=== PATIENT | male | born 1930 | race Caucasian/White ===

== ENCOUNTER 2016-08-29 16:17 | Inpatient (IN) | payer BC ==
--- NOTE | ~2016-08-29 | DS ---
Discharge Summary [facility] [address] [place]. [address] NAME: BUDDY TRAN : [birth year] STATUS : DIS IN PAT#: [id number] AGE: 86 ADM/REG DATE : 08/29/16 MR#: [id number] REPORT SERV DATE: 09/11/16 DICTATED BY: JEFF MAN DATE: 09/10/16 REPORT STATUS : Draft TRANSCRIBED BY: MODPavel DATE: 09/10/16 Data Collection from hospitalization DISCHARGE DIAGNOSES: 1. 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 2. Atrial fibrillation. 3. Hypertension. 4. Diabetes. 5. Hyperlipidemia. 6. Aortic stenosis. 7. History of coronary artery disease. CONSULTATIONS: Juan M Jackson M.D. PROCEDURES PERFORMED: None. MEDICATIONS: Norvasc 5 mg daily, Eliquis 5 mg twice a day, aspirin 81 mg daily, Folbic one tablet daily, ferrous sulfate 325 mg daily, Proscar 5 mg daily, Lasix 40 mg daily, Amaryl 1 mg daily, Prilosec 20 mg daily, Klor-Con 20 mEq daily, Altace 2.5 mg daily, and Zocor 20 mg at bedtime. He was instructed not to continue sotalol. CONDITION AT DISCHARGE: Stable. DISPOSITION: The patient was discharged home on an 1800-calorie cardiac/diabetic diet with activities as instructed. He would follow up with Dr. Juan M Jackson three weeks following discharge and four weeks following discharge. He would follow up with me two weeks following discharge. HOSPITAL COURSE: This is an 86-year-old man who had atrial fibrillation, that had fairly recently been diagnosed. His daughter stated that he had been on Brilinta and metoprolol, but about a month prior to this admission, he was switched to sotalol and Eliquis. Unfortunately, the patient did not stop the metoprolol, so he was on two beta-blockers at one time. He began to feel very poor. He presented to my office and was found to have heart rates in the 20s, this appeared to be sinus rhythm. He was brought to [facility] and admitted at this time for further evaluation and treatment. Upon admission, he had been in on distress. The following day, his blood pressure had increased into the 180s systolic. His heart rate was stable. He was in atrial fibrillation, slow ventricular response. He was hemodynamically stable. He was transferred to the floor. Norvasc was being given for hypertension. MONTSERRAT inhibitor was going to be resumed. On 08/31/2016, he was seen by Dr. Juan M Jackson regarding bradycardia. He is normally very active, but recently he has felt poorly. He has had no bleeding problems. His white blood cell count was 13. Liver function tests were normal. Cardiac enzymes were negative. Creatinine level was 1. His electrocardiogram initially demonstrated sinus bradycardia with heart rate around 40. Telemetry revealed that he was presently in atrial fibrillation with a controlled rate in the 80s or 90s. He occasionally gets up to about 100s. He was felt to have severe sinus bradycardia, probably secondary to medical noncompliance. Metoprolol and sotalol were stopped. He had converted from sinus Discharge Summary [address] [place]. [address] NAME: BUDDY TRAN : [birth year] STATUS : DIS IN PAT#: [id number] AGE: 86 ADM/REG DATE : 08/29/16 MR#: [id number] REPORT SERV DATE: 09/11/16 DICTATED BY: JEFF MAN DATE: 09/10/16 REPORT STATUS : Draft TRANSCRIBED BY: SWETA DATE: 09/10/16 bradycardia to atrial fibrillation with heart rate mostly in the 80s or 90s, sometimes a little above 100. This was while he was sitting in bed. Our options were discussed with the patient and his daughter. The first option was to leave him in atrial fibrillation with minimal or no rate control. He would continue Eliquis as long as he feels well and there is no bradycardia, no other change would need to be made. The next option would be to place a pacemaker and try to maintain sinus rhythm with sotalol or some other antiarrhythmic medication. For now, we agreed to observe him on no rate controlling medications. We would add one of them possibly very slowly if we have to. If at any time he converted to sinus rhythm on his own and was bradycardic off medications, he would definitely need a pacemaker before he goes home. It was felt that he could go out to a telemetry bed, but he would have to stay at least one night if not two to be observed on telemetry. Later that day, the patient said he felt good. He had no new complaints. His lungs were clear. Discharge instructions were given. Due to his improved and stable condition, he was discharged home with the above-stated instructions. Information collected by: Libra Trujillo I submit the above information as my discharge summary. JAIME/SWETA Jeff Man M.D., F.A.CTimothyCTimothy / [id number] CC: Jeff Man M.D., KimCSteffany Calero F.A.C.P., M.D.
--- NOTE | ~2016-08-29 | CN ---
Consultation Report [facility] [address] [place]. [address] NAME: BUDDY DILLARD : [birth year] STATUS : ADM IN PAT#: [id number] AGE: 86 ADM/REG DATE : 08/29/16 MR#: [id number] REPORT SERV DATE: 08/31/16 DICTATED BY: JUAN M JACKSON DATE: 08/31/16 REPORT STATUS : Draft TRANSCRIBED BY: MODL DATE: 08/31/16 CONSULTATION DATE OF CONSULTATION: 08/31/2016 REASON FOR THE VISIT: Bradycardia. HISTORY OF PRESENT ILLNESS: Mr. Dillard is an 86-year-old man with atrial fibrillation, that has been fairly recently diagnosed. The patient is not the best historian, but his daughter is in the room and is an excellent historian. He was on Brilinta and metoprolol, but about a month ago, he was switched to sotalol and Eliquis. Unfortunately, the patient did not stop the metoprolol, so he was on two beta blockers at one time. He has been feeling very poorly. He presented to Dr. Man's office and was found to have a heart rate in the 20s. This appears to be sinus rhythm. He was brought to [facility]. He has since converted to atrial fibrillation with a heart rate in the 70s and 80s. He feels much better. His daughter states that he has had a fairly acute decline over the last weeks to month or two in his functional status. Normally, he is very active, but recently he feels poorly. No bleeding problems. PAST MEDICAL HISTORY: 1. Aortic stenosis. 2. Atrial fibrillation. 3. History of coronary artery disease. 4. Hypertension. 5. Diabetes. 6. Hyperlipidemia. SOCIAL HISTORY: He remains very active. He lives with his daughter, who is very involved in his care. He does not smoke. FAMILY HISTORY: Noncontributory. HOME MEDICATIONS: 1. Eliquis 2.5 mg b.i.d. 2. Aspirin 81 mg daily. 3. Iron. 4. Proscar 5 mg daily. 5. Amaryl 1 mg daily. 6. Prilosec 20 mg daily. 7. Altace 2.5 mg daily. 8. Zocor 20 mg every night at bedtime. 9. Sotalol 80 mg b.i.d. 10.Metoprolol, unknown dose b.i.d. Consultation Report [facility] [address] [place]. [address] NAME: BUDDY DILLARD : [birth year] STATUS : ADM IN PAT#: [id number] AGE: 86 ADM/REG DATE : 08/29/16 MR#: [id number] REPORT SERV DATE: 08/31/16 DICTATED BY: JUAN M JACKSON DATE: 08/31/16 REPORT STATUS : Draft TRANSCRIBED BY: SWETA DATE: 08/31/16 ALLERGIES: HE IS ALLERGIC TO PENICILLIN. REVIEW OF SYSTEMS: A 10 system review is asked and is basically negative except for noted above in the history of present illness. It is remarkable for worsening dyspnea on exertion and fatigue. No chest pain or passing out. PHYSICAL EXAMINATION: VITAL SIGNS: Temperature 98.0, heart rate 80, blood pressure 134/73. GENERAL: Mr. Dillard is a well-developed man in no acute distress. He is alert and oriented to person and place. HEENT: Negative. He is not dehydrated. NECK: Does not show significant JVD. LUNGS: Have some rhonchi. No wheezing. HEART: Tones are irregular. There is a murmur. ABDOMEN: The abdominal exam is negative. He has good bowel sounds. EXTREMITIES: Minimal chronic pitting edema. NEUROLOGIC: He has normal speech and moves all four extremities equally. SKIN: Shows bruising. No rash. LABORATORY DATA: White blood cell count 13, hematocrit 45, platelet count 151. Sodium 143, potassium 3.9, BUN 16, creatinine is 1. Cardiac enzymes are negative. Liver function tests are normal. Electrocardiogram has initially demonstrated sinus bradycardia with heart rate around 40. Telemetry, presently he is in atrial fibrillation with a controlled rate in the 80s or 90s. He occasionally gets up to about 100. Echocardiogram, this is performed recently as an outpatient and demonstrates an ejection fraction between 45% and 50% and is consistent with severe aortic stenosis. IMPRESSION: Severe sinus bradycardia, probably secondary to medical noncompliance. PLAN: Mr. Dillard's metoprolol and sotalol have been stopped. He has converted from sinus bradycardia to atrial fibrillation with a heart rate mostly in the 80s or 90s, sometimes a little above 100, this is while he is sitting in bed. I talked to him and his daughter in detail today about our options. The first option is to leave him in atrial fibrillation with minimal or no rate control. He would continue Eliquis. As long as he feels well and there is no bradycardia, no other change needs to be made. The next option is to put in a pacemaker and try to maintain sinus rhythm with sotalol or some other antiarrhythmic medication. For now, we agree to observe him on no rate controlling medications. We would add one of them possibly very slowly if we had to. If at any time, he converts to sinus rhythm on his own and is bradycardic, (off medicines), then he will definitely need a pacemaker before he goes home. I think, he can go out to a telemetry bed, but he has to stay at least one night if not to, to observe him on telemetry. Consultation Report [facility] [id number] [place]. [address] NAME: BUDDY DILLARD : [birth year] STATUS : ADM IN [facility]#: [id number] AGE: 86 ADM/REG DATE : 08/29/16 MR#: [id number] REPORT SERV DATE: 08/31/16 DICTATED BY: JUAN M JACKSON DATE: 08/31/16 REPORT STATUS : Draft TRANSCRIBED BY: SWETA DATE: 08/31/16 ENMA/SWETA Juan M Jackson M.D. / [id number] CC: Gerardo Proctor
[2016-08-29 15:26] LABS: BASOPHILS 0.2 %; BASOPHILS ABSOLUTE 0.02 10/3/uL (0.0-0.16); EOSINOPHILS 2.6 %; EOSINOPHILS ABSOLUTE 0.26 10/3/uL (0.0-0.53); HEMOGLOBIN 14.4 g/dL (13.6-17.8); IMMATURE GRANULOCYTES 0.2 %; IMMATURE GRANULOCYTES ABSOLUTE 0.02 10/3/uL (0.0-0.11); LYMPHOCYTES 40.9 %; LYMPHOCYTES ABSOLUTE 4.11 10/3/uL (0.67-4.30); MEAN PLATELET VOLUME 11.2 fL (9.2-13.0); MONOCYTES 8.4 %; MONOCYTES ABSOLUTE 0.84 10/3/uL (0.21-1.20); NEUTROPHILS 47.7 %; PLATELET COUNT 161 10/3/uL (150-400); RBC DISTRIBUTION WIDTH 16.5 % (12.0-16.0); WHITE BLOOD CELLS 10.1 10/3/uL (4.5-10.5)
[2016-08-29 15:29] LABS: HEMATOCRIT 39.9 % (40.0-51.0); MEAN CORPUS HGB CONC 36.1 g/dL (32.0-36.0); MEAN CORPUSCULAR HEMOGLOB 34.5 pg (26.0-34.0); MEAN CORPUSCULAR VOLUME 95.7 fL (80-100); RED CELL COUNT 4.17 10/6/uL (4.7-6.1)
[2016-08-29 15:30] LABS: MANUAL DIFF NO %
[2016-08-29 15:34] LABS: INTERNATIONAL NORMAL RATI 1.4 UNITS (-)
[2016-08-29 15:35] LABS: PARTIAL THROMBO TIME 35.3 SEC (22.5-37.2)
[2016-08-29 15:48] LABS: BUN (BLOOD UREA NITROGEN) 24 MG/DL (6-23); CALCIUM, SERUM 9.5 MG/DL (8.5-10.4); CHEST PAIN PROFILE TAT 0 Hrs 26 Mins; CHLORIDE, SERUM 109 MMOL/L (96-112); CO2 (CARBON DIOXIDE) 30 MMOL/L (24-34); CREATININE 1.43 MG/DL (0.70-1.30); GFR AFRICAN AMERICAN 50 ML/MIN (>=60); GFR NON AFRICAN AMERICAN 43 ML/MIN (>=60); POTASSIUM, SERUM 4.5 MMOL/L (3.5-5.3); SODIUM, SERUM 146 MMOL/L (135-148); TROPONIN I <0.02 NG/ML (<0.05)
[2016-08-29 15:49] LABS: GLUCOSE, SERUM 93 MG/DL (60-99)
[2016-08-29 16:10] LABS: EOSINOPHILS 5 %; EOSINOPHILS ABSOLUTE (CALC) 0.51 10/3/uL (0.0-0.53); ER DIFF TAT 0 Hrs 48 Mins; LYMPHOCYTES 45 %; LYMPHOCYTES ABSOLUTE (CALC) 4.55 10/3/uL (0.67-4.30); MONOCYTES 1 %; NEUTROPHILS ABSOLUTE (CALC) 4.95 10/3/uL (2.02-8.40); SEGMENTED NEUTROPHIL (0) 49 %; TOTAL NUCLEATED CELLS 100
[~2016-08-29 16:17] MED LIST: AMARYL1 MG PO; ASAB PO; BRILINTA90 MG PO; CYANO1000T PO; FOLBIC PO; IRON PO; IRON325 MG PO; LOP25 PO; PLAVIX PO; PRILO PO; PROSCAR5 PO; VITAMIN B-625 MG PO; ZOCOR40 PO; [UNRECOGNIZED DRUG - OTHER]; [UNRECOGNIZED DRUG - OTHER]
[2016-08-29 16:25] LABS: PLATELET ESTIMATE ADQ (ADEQUATE)
[2016-08-29 16:27] LABS: RBC MORPHOLOGY NORM (NORMAL)
[2016-08-29] MEDS ORDERED: FOLBIC PO (17:10)
[2016-08-29] MEDS ORDERED: AMARYL1 MG PO (17:10)
[2016-08-29] MEDS ORDERED: HALF81 PO (17:10)
[2016-08-29] MEDS ORDERED: FERROUS SULF325 M1 PO (17:10)
[2016-08-29] MEDS ORDERED: PROSCAR5 PO (17:11)
[2016-08-29] MEDS ORDERED: ELIQUIS 5 MG TAB5 MG PO (17:11)
[2016-08-29] MEDS ORDERED: PRILO PO (17:11)
[2016-08-29] MEDS ORDERED: ZOCOR20 PO (17:11)
[2016-08-29] MEDS ORDERED: ALTA2.5 PO (17:11)
[2016-08-29] MEDS ORDERED: BETAPACE80 PO (17:12)
[2016-08-30 04:29] LABS: HEMATOCRIT 40.4 % (40.0-51.0); HEMOGLOBIN 13.3 g/dL (13.6-17.8); MEAN PLATELET VOLUME 11.2 fL (9.2-13.0); PLATELET COUNT 148 10/3/uL (150-400); RBC DISTRIBUTION WIDTH 14.4 % (12.0-16.0); RED CELL COUNT 4.46 10/6/uL (4.7-6.1); WHITE BLOOD CELLS 9.9 10/3/uL (4.5-10.5)
[2016-08-30 04:30] LABS: MANUAL DIFF YES %; MEAN CORPUS HGB CONC 32.9 g/dL (32.0-36.0); MEAN CORPUSCULAR HEMOGLOB 29.8 pg (26.0-34.0); MEAN CORPUSCULAR VOLUME 90.6 fL (80-100)
[2016-08-30 04:48] LABS: A/G RATIO 1.4 (0.7-1.9); ALBUMIN 3.7 G/DL (3.5-5.0); ALKALINE PHOSPHATASE 115 U/L (45-117); BUN (BLOOD UREA NITROGEN) 22 MG/DL (6-23); CALCIUM, SERUM 9.3 MG/DL (8.5-10.4); CHLORIDE, SERUM 108 MMOL/L (96-112); CO2 (CARBON DIOXIDE) 28 MMOL/L (24-34); CPK 29 U/L (0-200); CREATININE 1.11 MG/DL (0.70-1.30); GFR AFRICAN AMERICAN 68 ML/MIN (>=60); GFR NON AFRICAN AMERICAN 59 ML/MIN (>=60); GLOBULIN 2.6 G/DL (2.5-4.1); GLUCOSE, SERUM 100 MG/DL (60-99); PHOSPHORUS, SERUM 3.2 MG/DL (2.5-4.5); POTASSIUM, SERUM 4.1 MMOL/L (3.5-5.3); SGOT(AST) 24 U/L (5-40); SGPT(ALT) 35 U/L (5-65); SODIUM, SERUM 146 MMOL/L (135-148); TOTAL BILIRUBIN 0.8 MG/DL (0-1.2); TOTAL PROTEIN 6.3 G/DL (6.0-8.5); TROPONIN I <0.02 NG/ML (<0.05)
[2016-08-30 04:50] LABS: CK-MB 1.5 NG/ML
[2016-08-30 05:19] LABS: BAND NEUTROPHILS 1 %; BASOPHILS 1 %; EOSINOPHILS 2 %; LYMPHOCYTES 31 %; LYMPHOCYTES ABSOLUTE (CALC) 3.07 10/3/uL (0.67-4.30); MONOCYTES 9 %; MONOCYTES ABSOLUTE (CALC) 0.89 10/3/uL (0.21-1.20); NEUTROPHILS ABSOLUTE (CALC) 5.64 10/3/uL (2.02-8.40); PLATELET ESTIMATE ADQ (ADEQUATE); RBC MORPHOLOGY NORM (NORMAL); SEGMENTED NEUTROPHIL (0) 56 %; TOTAL NUCLEATED CELLS 100
[2016-08-31 01:57] LABS: HEMOGLOBIN 15.6 g/dL (13.6-17.8); MEAN CORPUS HGB CONC 34.3 g/dL (32.0-36.0); MEAN CORPUSCULAR HEMOGLOB 30.2 pg (26.0-34.0); MEAN CORPUSCULAR VOLUME 88.2 fL (80-100); MEAN PLATELET VOLUME 10.9 fL (9.2-13.0); PLATELET COUNT 151 10/3/uL (150-400); RED CELL COUNT 5.16 10/6/uL (4.7-6.1); WHITE BLOOD CELLS 12.7 10/3/uL (4.5-10.5)
[2016-08-31 01:59] LABS: HEMATOCRIT 45.5 % (40.0-51.0); MANUAL DIFF YES %
[2016-08-31 02:15] LABS: A/G RATIO 1.2 (0.7-1.9); ALBUMIN 3.8 G/DL (3.5-5.0); ALKALINE PHOSPHATASE 142 U/L (45-117); BUN (BLOOD UREA NITROGEN) 16 MG/DL (6-23); CALCIUM, SERUM 9.2 MG/DL (8.5-10.4); CHLORIDE, SERUM 103 MMOL/L (96-112); CK-MB 1.9 NG/ML; CO2 (CARBON DIOXIDE) 29 MMOL/L (24-34); CPK 30 U/L (0-200); CREATININE 0.99 MG/DL (0.70-1.30); GFR AFRICAN AMERICAN 78 ML/MIN (>=60); GFR NON AFRICAN AMERICAN 68 ML/MIN (>=60); GLOBULIN 3.1 G/DL (2.5-4.1); GLUCOSE, SERUM 110 MG/DL (60-99); POTASSIUM, SERUM 3.9 MMOL/L (3.5-5.3); SGOT(AST) 22 U/L (5-40); SGPT(ALT) 32 U/L (5-65); SODIUM, SERUM 143 MMOL/L (135-148); TOTAL BILIRUBIN 1.4 MG/DL (0-1.2); TOTAL PROTEIN 6.9 G/DL (6.0-8.5); TROPONIN I 0.02 NG/ML (<0.05)
[2016-08-31 02:20] LABS: ATYPICAL LYMPH MOD (6-10%) (0-5%); EOSINOPHILS 2 %; EOSINOPHILS ABSOLUTE (CALC) 0.25 10/3/uL (0.0-0.53); LYMPHOCYTES 41 %; LYMPHOCYTES ABSOLUTE (CALC) 5.21 10/3/uL (0.67-4.30); MONOCYTES 5 %; MONOCYTES ABSOLUTE (CALC) 0.64 10/3/uL (0.21-1.20); SEGMENTED NEUTROPHIL (0) 52 %; TOTAL NUCLEATED CELLS 100
[2016-08-31 02:21] LABS: RBC MORPHOLOGY NORM (NORMAL)
[2016-09-01 05:18] LABS: CPK 36 U/L (0-200); TROPONIN I <0.02 NG/ML (<0.05)
[2016-09-01] MEDS ORDERED: NORV5 PO (11:05)
[2016-09-01] MEDS ORDERED: L40 PO (11:07)
[2016-09-01] MEDS ORDERED: KLOR-CON M2020 MEQ PO (11:09)
[2016-09-01] MEDS ORDERED: ALBUTEROL5 INH (11:18)
[2017-01-14] MEDS ORDERED: ELIQUIS 5 MG TAB5 MG PO (01:06)
[2017-01-14] MEDS ORDERED: FOLBIC PO (01:07)
[2017-01-14] MEDS ORDERED: HALF81 PO (01:07)
[2017-01-14] MEDS ORDERED: PROSCAR5 PO (01:09)
[2017-01-14] MEDS ORDERED: FERROUS SULF325 M1 PO (01:09)
[2017-01-14] MEDS ORDERED: L40 PO (01:10)
[2017-01-14] MEDS ORDERED: AMARYL1 MG PO (01:10)
[2017-01-14] MEDS ORDERED: PRILO PO (01:11)
[2017-01-14] MEDS ORDERED: ZOCOR20 PO (01:11)
[2017-01-14] MEDS ORDERED: KLOR-CON M2020 MEQ PO (01:11)
[2017-01-17] MEDS ORDERED: LOP25 PO (16:06)
[2017-01-17] MEDS ORDERED: LAN125 PO (16:06)
== END 2016-09-01 13:53 | disposition home or self-care (01) | DRG 918 ==
LOC: ER 16:17 → 6NO 18:10 → MIC 19:59 → 6NO 08-31 18:53
PROVIDERS: Emergency Medicine; Internal Medicine Interventional Cardiology
DX: T44.7X1A Poisoning by beta-adrenoreceptor antagonists, accidental (unintentional), initial encounter (principal); I50.22 Chronic systolic (congestive) heart failure; I48.91 Unspecified atrial fibrillation; R00.1 Bradycardia, unspecified; I10 Essential (primary) hypertension; I35.0 Nonrheumatic aortic (valve) stenosis; I25.10 Atherosclerotic heart disease of native coronary artery without angina pectoris; E11.9 Type 2 diabetes mellitus without complications; E78.5 Hyperlipidemia, unspecified; Z79.82 Long term (current) use of aspirin; Z79.899 Other long term (current) drug therapy; Z88.0 Allergy status to penicillin; Z95.5 Presence of coronary angioplasty implant and graft; Z79.2 Long term (current) use of antibiotics; Z91.14 Patient's other noncompliance with medication regimen
CPT/HCPCS: 71010; 80048; 80053; 82550; 82553; 82962; 83735; 83880; 84100; 84484; 85025; 85610; 85730; 87641; 93005; 94640; 99291; A9270-GY